=== PATIENT | female | born 1990 | race Caucasian/White ===

== ENCOUNTER 2018-05-29 17:36 | Emergency (ER) | payer OTHER ==
[2018-05-29] MEDS: METHOCARBAMOL 500 MG TAB PO (19:57)
[2018-05-29] MEDS: NAPROXEN 250 MG TAB PO (19:58)
== END 2018-05-29 20:28 | disposition home or self-care (01) ==
LOC: M ED 17:36
DX: M54.9 Dorsalgia, unspecified (principal); M25.512 Pain in left shoulder; V43.52XA Car driver injured in collision with other type car in traffic accident, initial encounter; Y92.9 Unspecified place or not applicable; Y93.9 Activity, unspecified; Y99.9 Unspecified external cause status; F41.9 Anxiety disorder, unspecified
CPT/HCPCS: 71111